=== PATIENT | male | born 1985 | race Caucasian/White ===

== ENCOUNTER 2018-12-21 15:40 | Emergency (ER) | payer OTHER ==
[~2018-12-21] VITALS: Ht 182.9 cm; Wt 108.9 kg
[2018-12-21] MEDS ORDERED: NORCO 5-325 TA1 EACH PO (16:47)
[2018-12-21 17:12] VITALS: BP 129/72
== END 2018-12-21 17:12 | disposition home or self-care (01) ==
LOC: M.ERS 15:40
DX: S92.411A Displaced fracture of proximal phalanx of right great toe, initial encounter for closed fracture (principal); W22.8XXA Striking against or struck by other objects, initial encounter; Y93.89 Activity, other specified; Y92.89 Other specified places as the place of occurrence of the external cause; Y99.8 Other external cause status; Z88.8 Allergy status to other drugs, medicaments and biological substances